=== PATIENT | female | born 1950 | race Caucasian/White ===

== ENCOUNTER 2016-10-03 10:00 | Inpatient (IN) ==
--- NOTE | 2016-10-03 10:51 | Family Practice History&Phys ---
Assessment and Plan (1) septic bursitis left elbow with hardware Status: Acute Assessment and plan: I aspirated 5 cc of thick purulent drainage from bursa last p.m. Cultures are pending. Will admit for IV antibiotics and specialty evaluation. In view of the proximity to previous hardware we'll consult orthopedics and infectious disease Current Visit: Yes (2) history of paroxysmal defibrillation Status: Chronic Assessment and plan: We will start her on aspirin and monitor closely Current Visit: Yes (3) osteoporosis Status: Chronic Assessment and plan: Stable on present medication Current Visit: Yes (4) nonrheumatic aortic sclerosis Status: Chronic Assessment and plan: Stable by history. We'll obtain a current echo during admission Current Visit: Yes (5) bifascicular block Status: Chronic Assessment and plan: Stable at present Current Visit: Yes (6) chronic neck and back pain Status: Chronic Assessment and plan: Stable on present medication Current Visit: Yes (7) bilateral venous stasis disease Status: Chronic Assessment and plan: Stable at present Current Visit: Yes History of Present Illness Chief complaint: septic bursitis left elbow with hardware History of present illness: Ms. Cho is a 66 year old female Patient is a 65-year-old white female seen in clinic last PM WITH swelling and pain and left elbow since last week. She was noted to have a 20,000 white blood cell count. I performed a aspiration on the elbow and received 5 cc of thick purulent drainage. Patient has had a previous fracture to the arm and apparently he has hardware present. Had wanted to admit her last p.m. but patient could not be admitted until this a.m. I obtained cultures last p.m. which are pending. Plan to admit patient start on vancomycin until cultures are obtained and will consult appropriate subspecialists. I have entered orders twice but have not been able to get the computer to take THE orders. I will resubmit the orders for 15 more times. Otherwise will admit Home Medications Medication Instructions Recorded Confirmed Type Alendronate [Fosamax] 10 mg PO DAILY@0730 06/01/16 06/01/16 History Ca/D3/Mag#11/Zinc/Specialist Managers/Quoc/Bor 1 each PO DAILY 06/01/16 06/01/16 History [Caltrate 600+D Plus Tablet] Estradiol [Estradiol Tab] 2 mg PO DAILY 06/01/16 06/01/16 History Folic Acid/Mv,Iron,Min [One Daily 1 each PO DAILY 06/01/16 06/01/16 History For Women Tablet] Magnesium Oxide [Magox 400] 400 mg PO DAILY 06/01/16 06/01/16 History Meloxicam [Mobic] 15 mg PO DAILY 06/01/16 06/01/16 History Metoprolol/Hydrochlorothiazide 1 each PO BID 06/01/16 06/01/16 History [Metoprolol-Hctz 100-50 mg Tab] Triamterene/Hydrochlorothiazid 1 each PO DAILY 06/01/16 06/01/16 History [Triamterene-Hctz 37.5-25 mg Tb] Allergies Allergy/AdvReac Type Severity Reaction Status Date / Time codeine Allergy HIVES Verified 06/01/16 10:09 Medical,Surgical,& Family Hx - Medical History Cardio: History of: Cardiac Dysrhythmia (bifascicular block), Cerebrovascular Disease (nonrheumatic aortic sclerosis), Cardiovascular Problems (history of paroxysmal atrial fibrillation) Rheumatology: History of;: Rheumatological Problems (chronic degenerative joint disease and back pain) Gastrointestinal: History of: GERD Musculoskeletal: History of: Osteoporosis - Surgical History Cardiac Surgeries: Patient Denies: Cardiac Catheterization Thoracic Surgeries: Patient denies;: Organ Transplant HEENT Surgeries: Surgical HX of: Tonsilectomy & Adenoidectomy Reproductive Surgeries: Surgical HX of;: Hysterectomy Orthopedic Surgeries: Surgical HX of;: Orthopedic Surgery (fracture left elbow with hardware) Additional Surgical History: Urinary bladder suspension - Family History Family History: Reports;: Family Cancer, Family Hypertension - Social History Smoking Status: Current every day smoker Have you smoked in the last 12 months: Yes Time spent discussing smoking cessation with patient: 3 to 10 minutes Frequency of Alcohol Use: None Type of Drug Use: None Marital Status: Lives With:: Spouse Functional capacity: independent ambulation Exam - Constitutional General appearance: mild distress - Head Head exam: Present: normal inspection - Eye Pupils: Present: SANTO - ENT ENT exam: Present: normal exam - Neck Neck exam: Present: normal inspection - Respiratory Respiratory exam: Present: clear to auscultation bilaterally - Cardiovascular Cardiovascular exam: Present: regular rate and rhythm - GI/Abdominal GI/Abdominal exam: Present: normal bowel sounds, soft - Extremities Exam Extremities exam: Present: other (patient has swelling and pain and erythema over the olecranon region of the left elbow, I aspirated 5 cc of thick purulent drainage last p.m.) - Back Exam Back exam: Present: normal inspection - Neurological Exam Neurological exam: Present: alert, oriented X3 - Psychiatric Psychiatric exam: Present: normal affect - Skin Skin exam: Present: normal color
--- NOTE | 2016-10-03 11:39 | Orthopedic Consult Note ---
History of Present Illness Chief complaint: Left elbow swelling History of present illness: Ms. Cho is a 66 year old female who has been having swelling in the left elbow for the past few days. She had increasing erythema and pain as well. She was seen in Dr. Rausch's office yesterday where he aspirated 45 cc of purulent fluid. This was sent to lab for evaluation. Apparently she did not want to be admitted last night but came into the hospital for admission and management today. She underwent fixation of a left elbow fracture of some sort in the distant past, approximately 20 years ago. She also had some sort of elbow bursitis about a year ago that was aspirated, but the fluid is not purulent at that time. Currently, her cultures are growing gram-positive cocci from the aspirate yesterday. She denies any fever or constitutional symptoms Home Medications Medication Instructions Recorded Confirmed Type Alendronate [Fosamax] 10 mg PO DAILY@0730 06/01/16 06/01/16 History Ca/D3/Mag#11/Zinc/Electric Refrigerator Preparer/Quoc/Bor 1 each PO DAILY 06/01/16 06/01/16 History [Caltrate 600+D Plus Tablet] Estradiol [Estradiol Tab] 2 mg PO DAILY 06/01/16 06/01/16 History Folic Acid/Mv,Iron,Min [One Daily 1 each PO DAILY 06/01/16 06/01/16 History For Women Tablet] Magnesium Oxide [Magox 400] 400 mg PO DAILY 06/01/16 06/01/16 History Meloxicam [Mobic] 15 mg PO DAILY 06/01/16 06/01/16 History Metoprolol/Hydrochlorothiazide 1 each PO BID 06/01/16 06/01/16 History [Metoprolol-Hctz 100-50 mg Tab] Triamterene/Hydrochlorothiazid 1 each PO DAILY 06/01/16 06/01/16 History [Triamterene-Hctz 37.5-25 mg Tb] Allergies Allergy/AdvReac Type Severity Reaction Status Date / Time codeine Allergy HIVES Verified 06/01/16 10:09 12 point system: reviewed and no additional remarkable complaints except as stated Medical,Surgical,& Family Hx - Medical History Cardio: History of: Cardiovascular Problems (PATIENT DOES NOT KNOW) Musculoskeletal: History of: Osteoporosis - Surgical History Cardiac Surgeries: Patient Denies: Cardiac Catheterization Thoracic Surgeries: Patient denies;: Organ Transplant - Social History Smoking Status: Never smoker Exam - Constitutional Exam: Left upper extremity: She has some erythema in the arm along the dorsal aspect of the arm extending into the hand. She has an area of swelling and fluctuance over the olecranon process. She has a well-healed incision along the posterior lateral portion of the elbow as well. Assessment and Plan (1) septic bursitis left elbow with hardware Status: Acute Assessment and plan: I discussed the situation with she and her today. She does have a septic olecranon bursitis, likely Staphylococcus. I recommended I&D of the left elbow. We also discussed possible hardware removal if it appeared to be involved however this could be difficult considering length on the hardware has been in place. Will obtain x-rays to delineate exactly what type of hardware is present prior to proceeding to the operating suite. Risks, alternatives, and benefits to undergoing this procedure were discussed in great detail, they voiced understanding and desired to proceed. Risks discussed included, but are not limited to, bleeding, recurrent infection, damage to artery or nerves, persistent pain and need for revision surgery. We will get her scheduled for this afternoon. Current Visit: Yes
[2016-10-03] MEDS ORDERED: ONDANSETRON 4 MG/2 ML VIAL IV PRN (11:41)
[2016-10-03] MEDS ORDERED: ACETAMINOPHEN 325 MG TABLET PO PRN (11:42)
[2016-10-03] MEDS ORDERED: VANCOMYCIN INJ 1,000 MG in SODIUM CHLORIDE 0.9% 250 ML IV SCH (12:00)
--- NOTE | 2016-10-03 12:11 | Infectious Disease Consult ---
Assessment and Plan (1) septic bursitis left elbow with hardware Status: Acute Assessment and plan: Gram-positive cocci growing from the pus aspirated from the left elbow yesterday. Recommendations: 1. Agree with empiric vancomycin, monitor trough levels goal trough is 15-20. Monitor renal function closely while on vancomycin. 2. Blood cultures 2 sets today 3. Follow-up cultures and adjust antibiotics accordingly 4. Patient will need antibiotics for prolonged period given the presence of hardware in proximity of this infection to the bone. Probably 6 weeks antibiotic therapy. Thank you very much for the consult. Will follow. Discussed with patient's at bedside. Current Visit: Yes (2) history of paroxysmal defibrillation Status: Chronic Current Visit: Yes (3) osteoporosis Status: Chronic Current Visit: Yes History of Present Illness Chief complaint: Left elbow septic bursitis with hardware History of present illness: Ms. Cho is a 66 year old female presented with increasing swelling redness and pain to the left elbow for the past 2-3 days. She has history of fracture of that left upper extremity with placement of plates and screws about the elbow. That was 20 years ago. She denies recent trauma to the area. No fever or other constitutional symptoms. Saw her primary care provider Dr. Rausch yesterday and had pus aspirated from the olecranon bursa. She was called in for admission and I am asked to assist with her management. Home Medications Medication Instructions Recorded Confirmed Type Alendronate [Fosamax] 10 mg PO DAILY@0730 06/01/16 06/01/16 History Ca/D3/Mag#11/Zinc/Medicare Compliance Auditor/Quoc/Bor 1 each PO DAILY 06/01/16 06/01/16 History [Caltrate 600+D Plus Tablet] Estradiol [Estradiol Tab] 2 mg PO DAILY 06/01/16 06/01/16 History Folic Acid/Mv,Iron,Min [One Daily 1 each PO DAILY 06/01/16 06/01/16 History For Women Tablet] Magnesium Oxide [Magox 400] 400 mg PO DAILY 06/01/16 06/01/16 History Meloxicam [Mobic] 15 mg PO DAILY 06/01/16 06/01/16 History Metoprolol/Hydrochlorothiazide 1 each PO BID 06/01/16 06/01/16 History [Metoprolol-Hctz 100-50 mg Tab] Triamterene/Hydrochlorothiazid 1 each PO DAILY 06/01/16 06/01/16 History [Triamterene-Hctz 37.5-25 mg Tb] Allergies Allergy/AdvReac Type Severity Reaction Status Date / Time codeine Allergy HIVES Verified 06/01/16 10:09 12 point system: reviewed and no additional remarkable complaints except as stated (Per HPI) Medical,Surgical,& Family Hx - Medical History Cardio: History of: Cardiac Dysrhythmia (bifascicular block), Cerebrovascular Disease (nonrheumatic aortic sclerosis), Cardiovascular Problems (PATIENT DOES NOT KNOW) Rheumatology: History of;: Rheumatological Problems (chronic degenerative joint disease and back pain) Gastrointestinal: History of: GERD Musculoskeletal: History of: Osteoporosis - Surgical History Cardiac Surgeries: Patient Denies: Cardiac Catheterization Thoracic Surgeries: Patient denies;: Organ Transplant HEENT Surgeries: Surgical HX of: Tonsilectomy & Adenoidectomy Reproductive Surgeries: Surgical HX of;: Hysterectomy Orthopedic Surgeries: Surgical HX of;: Orthopedic Surgery (fracture left elbow with hardware) - Family History Family History: Reports;: Family Cancer, Family Hypertension - Social History Smoking Status: Never smoker Frequency of Alcohol Use: None Type of Drug Use: None Infectious Disease Exam H&P - Constitutional Vitals: Vital Signs Temp Pulse Resp BP Pulse Ox 96.9 F L 92 H 18 119/62 98 10/03/16 11:34 10/03/16 11:34 10/03/16 11:34 10/03/16 11:34 10/03/16 11:34 Intake and Output 10/02/16 10/03/16 10/03/16 23:59 07:59 15:59 Other: Weight 49.895 kg Patient Weight 10/03/16 23:59 Weight 49.895 kg Exam: General: Patient comfortable, nontoxic appearing HEENT: Mucous membranes pink and moist, anicteric acyanotic, SANTO, no oropharyngeal exudates Neck: Supple, no thyroid gland enlargement, no lymphadenopathy Respiratory system: Breath sounds vesicular, no crepitations or wheezes Cardiovascular: Normal S1 and S2, no murmurs appreciated Abdomen: Normal bowel sounds, soft nontender throughout, no organomegaly or mass Genitourinary: No suprapubic pain or bladder distention Extremities: Significant findings confined to the left upper extremity, there is fluctuant swelling over the left olecranon, there is no erythema and the swelling extends along the extensor aspect of the forearm. Skin: No rash
--- NOTE | 2016-10-03 12:17 | XRay Report ---
History: Elbow swelling. Possible infection. Previous ORIF Date: 10/03/2016 Study: Left elbow 2 views Comparison exam: No previous elbow x-ray currently available Metallic plate and screws stabilize an old healed olecranon fracture. There is no acute fracture or dislocation. There is no plain film sign of osteomyelitis. There is soft tissue swelling dorsal to the elbow of a nonspecific nature. There are some small nodular calcifications measuring 3.5 mm and less dorsal to the distal most left humerus on the lateral view. These could represent areas of calcific loose body formation or remote post traumatic soft tissue ossification. Impression: Previous ORIF of an old healed olecranon fracture. No plain film signs of osteomyelitis. Nonspecific soft tissue swelling dorsal to the elbow PROCEDURE INTERPRETED AT [facility] DEPARTMENT OF RADIOLOGY Final Report Signed by: Dr. Marie Jeffrey
--- NOTE | 2016-10-03 12:32 | EKG Report ---
Stationary ECG Study [facility] Test Date: 10/03/2016 12:34:12 PM Pat Name: JOSELUIS LEIGH Department: Room: 233 Gender: F [employer] [id number] Technical Lead: [place] : 1950 Requested by: Chepe Miller Order Number: [id number] Reading MD: KOURTNEY MARION Intervals [place] Rate: 113 P: 75 AR: 120 QRS: -86 QRSD: 114 T: 65 QT: 320 QTc: 387 Interpretive Statements SINUS TACHYCARDIA RIGHT BUNDLE BRANCH BLOCK LEFT ANTERIOR FASCICULAR BLOCK POSSIBLE ANTERIOR MYOCARDIAL INFARCTION, OF INDETERMINATE AGE INFERIOR MYOCARDIAL INFARCTION, OF INDETERMINATE AGE Electronically Signed On 10-05-16 15:17:19 CDT by KOURTNEY MARION [email or web address]
[2016-10-03 12:42] LABS: Basophils # 0.1 10*3/uL (0.0-0.2); Basophils % 0.4 % (0.0-0.8); Eosinophils # 0.1 10*3/uL (0.0-0.87); Eosinophils % 0.7 % (0.00-10.9); Hematocrit 31.8 VOL% (35.7-47.0); Hemoglobin 11.1 GM/DL (12.0-16.0); Immature Granulocytes % 1.2 %; Immature Granulocytes Absolute 0.22 #; Lymphocytes # 0.5 10*3/uL (1.4-4.0); Lymphocytes % 2.8 % (21.3-54.2); Mean Corpuscular HGB Conc 34.9 GM/DL (32-36); Mean Corpuscular Hemoglobin 32 PG (27-34); Mean Corpuscular Volume 92.7 FL (87-102); Mean Platelet Volume 9.8 FL (9.6-12.0); Monocytes # 0.9 10*3/uL (0.11-0.8); Monocytes % 4.9 % (1.7-12.7); Neutrophils # 16.2 10*3/uL (1.4-7.4); Platelet Count 390 T/CUMM (130-400); Red Blood Count 3.43 MC/CUMM (3.8-5.5); Red Cell Distribution Width 13.3 % (9.3-17.3)
[2016-10-03 13:00] LABS: Lymphocytes 2 % (20-55); Segmented Neutrophils 95 % (50-85); Total Cells Counted 100
[2016-10-03] MEDS ORDERED: VANCOMYCIN INJ 750 MG in SODIUM CHLORIDE 0.9% 250 ML IV SCH ×2 (13:00→14:30)
[2016-10-03 13:01] LABS: Hypochromasia 1+; Platelet Estimate Adequate
[2016-10-03] MEDS ORDERED: NEOSTIGMINE 10 MG/10 ML VIAL ONE (13:06)
[2016-10-03] MEDS ORDERED: ONDANSETRON 4 MG/2 ML VIAL ONE (13:06)
[2016-10-03] MEDS ORDERED: DEXAMETHASONE 10 MG/1 ML VIAL ONE (13:06)
[2016-10-03] MEDS ORDERED: GLYCOPYRROLATE 0.4 MG/2 ML VIAL ONE (13:06)
[2016-10-03] MEDS ORDERED: ROCURONIUM 100 MG/10 ML VIAL IV ONE (13:06)
[2016-10-03] MEDS ORDERED: METOCLOPRAMIDE 10 MG/2 ML VIAL ONE (13:06)
[2016-10-03] MEDS ORDERED: PROPOFOL 200 MG/20 ML VIAL IV ONE (13:06)
[2016-10-03] MEDS ORDERED: PHENYLEPHRINE 1 MG/10 ML SYRINGE IV ONE (13:06)
[2016-10-03] MEDS ORDERED: VANCOMYCIN 1,000 MG VIAL ONE (13:20)
[2016-10-03 13:26] LABS: Albumin 3.6 G/DL (3.4-5.0); Bilirubin,Total 0.6 MG/DL (0.2-1.0); Osmolality,Calculated 275.1 MOS/KG (273-304); Potassium 4.1 MMOL/L (3.5-5.1); Total Protein 7.7 G/DL (6.4-8.3)
--- NOTE | 2016-10-03 14:43 | XRay Report ---
XR chest 2V Indication: SOB Comparison: Chest x-ray dated April 30, 2008 Technique: Frontal and lateral views of the chest. Findings: Heart size appears within normal limits. Significant mitral annular calcifications suggested. Chronic change of the lungs without focal consolidation, pleural effusion, or pneumothorax. Hyperinflation of the lungs suggestive of COPD. Diffuse osteopenia. IMPRESSION: As above. PROCEDURE INTERPRETED AT [facility] DEPARTMENT OF RADIOLOGY Final Report Signed by: Dr Casey Liriano
--- NOTE | 2016-10-03 14:55 | Anesthesia Post-Op ---
Anesthesia Post OP - Post Ansesthetic Evaluation Patient seen in post op: Yes Resp: within normal limits CV: within normal limits Mental: within normal limits Temp: within normal limits [id number]: within normal limits Nausea and Vomiting: within normal limits Pain: within normal limits
[2016-10-03] MEDS ORDERED: MIDAZOLAM 2 MG/2 ML VIAL ONE (15:00)
[2016-10-03] MEDS ORDERED: SEVOFLURANE 1 UNIT/15 MINUTE INH ONE (15:00)
[2016-10-03] MEDS ORDERED: fentaNYL 100 MCG/2 ML VIAL ONE (15:00)
[2016-10-03] MEDS ORDERED: LACTATED RINGERS 2,000 ML IV ONE (15:00)
[2016-10-03] MEDS ORDERED: HYDROmorphone 2 MG/1 ML VIAL IV PRN ×2 (15:05)
[2016-10-03] MEDS ORDERED: NALOXONE 0.4 MG/ML VIAL IV PRN (15:05)
[2016-10-03] MEDS ORDERED: KETOROLAC 15 MG/1 ML VIAL IV PRN (15:05)
[2016-10-03] MEDS ORDERED: HYDROmorphone 2 MG/1 ML VIAL ONE (15:15)
[2016-10-03] MEDS ORDERED: MORPHINE PCA 30 MG/30 ML SYRINGE IV SCH (15:30)
[2016-10-03] MEDS: ASPIRIN 325 MG TABLET PO SCH (16:53)
[2016-10-03] MEDS: SODIUM CHLORIDE 0.9% 1,000 ML IV SCH (18:43)
[2016-10-03] MEDS: ACETAMINOPHEN 500 MG TABLET PO SCH (22:33)
[2016-10-03] MEDS: hydroCHLOROthiazide 25 MG TABLET PO SCH (22:33)
[2016-10-03] MEDS: DOCUSATE SODIUM 100 MG CAPSULE PO SCH (22:34)
[2016-10-03] MEDS: METOPROLOL TARTRATE 100 MG TABLET PO SCH (22:34)
[2016-10-04] MEDS: ACETAMINOPHEN 500 MG TABLET PO SCH ×3 (03:21→12:20)
[2016-10-04] MEDS: SODIUM CHLORIDE 0.9% 1,000 ML IV SCH (04:50)
[2016-10-04] MEDS: PANTOPRAZOLE 40 MG TABLET PO SCH ×2 (04:51→09:06)
[2016-10-04 06:23] LABS: Basophils % 0.1 % (0.0-0.8); Hematocrit 22.1 VOL% (35.7-47.0); Hemoglobin 7.4 GM/DL (12.0-16.0); Immature Granulocytes % 0.6 %; Lymphocytes # 0.3 10*3/uL (1.4-4.0); Lymphocytes % 2.2 % (21.3-54.2); Mean Corpuscular HGB Conc 33.5 GM/DL (32-36); Mean Corpuscular Hemoglobin 32 PG (27-34); Mean Corpuscular Volume 94.8 FL (87-102); Mean Platelet Volume 10.1 FL (9.6-12.0); Monocytes # 0.4 10*3/uL (0.11-0.8); Monocytes % 2.5 % (1.7-12.7); Neutrophils # 14.7 10*3/uL (1.4-7.4); Neutrophils % 94.6 % (38.7-73.9); Platelet Count 294 T/CUMM (130-400); Red Blood Count 2.33 MC/CUMM (3.8-5.5); Red Cell Distribution Width 13.3 % (9.3-17.3); White Blood Count 15.5 T/CUMM (4-12)
[2016-10-04 07:10] LABS: Calcium 7.4 MG/DL (8.5-10.1); Osmolality,Calculated 279.7 MOS/KG (273-304); Potassium 3.9 MMOL/L (3.5-5.1)
[2016-10-04 07:14] LABS: Magnesium 1.5 MG/DL (1.8-2.4); Risk Ratio 1.53; VLDL CHOLESTEROL 18.2 MG/DL
[2016-10-04 07:25] LABS: Band Neutrophils 5 % (0-10); Hypochromasia Slight; Platelet Estimate Adequate; Segmented Neutrophils 95 % (50-85); Total Cells Counted 100
[2016-10-04] MEDS: ESTRADIOL 2 MG TABLET PO SCH (08:54)
[2016-10-04] MEDS: ASPIRIN 325 MG TABLET PO SCH (08:54)
[2016-10-04] MEDS: DOCUSATE SODIUM 100 MG CAPSULE PO SCH ×2 (08:55→20:23)
[2016-10-04] MEDS: CALCIUM (CARBONATE)/VITAMIN D 600 MG-400 UNIT TABLET PO SCH (08:55)
[2016-10-04] MEDS: MULTIVITAMIN (CENTRUM) TABLET PO SCH (08:56)
[2016-10-04] MEDS: hydroCHLOROthiazide 25 MG TABLET PO SCH ×2 (08:56→20:23)
[2016-10-04] MEDS: METOPROLOL TARTRATE 100 MG TABLET PO SCH ×2 (08:56→20:23)
[2016-10-04] MEDS: ENOXAPARIN 40 MG/0.4 ML SYRINGE SUBCUT SCH (09:05)
[2016-10-04] MEDS: MAGNESIUM OXIDE 400 MG TABLET PO SCH (09:07)
[2016-10-04] MEDS ORDERED: POTASSIUM CHLORIDE INJ 10 MEQ, MAGNESIUM SULF INJ 1 GM in SODIUM CHLORIDE 0.45% 1,000 ML IV SCH (09:30)
--- NOTE | 2016-10-04 10:00 | Family Practice Progress Note ---
Family Practice - PN: Subj Interval history: Patient states that feels much better today. States she was unable sleep last p.m. but otherwise doing well. Dr. Fitzgerald was able to remove hardware from previous fracture which is a major help in clearing up this infection. Initial cultures revealed gram-positive cocci which is expected. Appreciate Dr. Archuleta assistance. Will modify antibiotics as soon as cultures available. Patient can receive her IV antibiotics through the infusion center. Hopefully can arrange all that on Thursday. A.m. labs reveal WBC of 15,500 which is improved magnesium was decreased at 1.5 other labs are stable. Will replenish magnesium deficit otherwise continue present therapy. She has a anemia of blood loss. Hemoglobin 7.4 with hematocrit of 22.1. Will monitor this. Exam (Progress Note) - Constitutional Vitals: Period Temp Pulse Resp BP Sys/Hatch Pulse Ox Last 24 Hr 96.9 F-98.2 F 76-116 14-92 90-178/51-112 93-100 Results - Labs CBC & BMP: 10/04/16 05:12 10/04/16 05:12 Assessment and Plan (1) septic bursitis left elbow with hardware Status: Acute Assessment and plan: I aspirated 5 cc of thick purulent drainage from bursa last p.m. Cultures are pending. Will admit for IV antibiotics and specialty evaluation. In view of the proximity to previous hardware we'll consult orthopedics and infectious disease Current Visit: Yes (2) history of paroxysmal defibrillation Status: Chronic Assessment and plan: We will start her on aspirin and monitor closely Current Visit: Yes (3) osteoporosis Status: Chronic Assessment and plan: Stable on present medication Current Visit: Yes (4) nonrheumatic aortic sclerosis Status: Chronic Assessment and plan: Stable by history. We'll obtain a current echo during admission Current Visit: Yes (5) bifascicular block Status: Chronic Assessment and plan: Stable at present Current Visit: Yes (6) chronic neck and back pain Status: Chronic Assessment and plan: Stable on present medication Current Visit: Yes (7) bilateral venous stasis disease Status: Chronic Assessment and plan: Stable at present Current Visit: Yes
--- NOTE | 2016-10-04 10:03 | Orthopedic Progress Note ---
Assessment and Plan (1) septic bursitis left elbow with hardware Status: Acute Assessment and plan: Discussed with the patient and her that the septic bursitis involves the hardware and that this was removed. We will leave dressing and Hemovac in place until tomorrow. Continue IV antibiotics Follow-up cultures Current Visit: Yes Orthopedics - Subjective Interval history: Patient is comfortable this morning. Pain is controlled. On exam, Hemovac is in place. Dressings clean and dry. Exam - Constitutional Vitals: Period Temp Pulse Resp BP Sys/Hatch Pulse Ox Last 24 Hr 96.9 F-98.2 F 76-116 14-92 90-178/51-112 93-100 Results - Labs CBC & BMP: 10/04/16 05:12 10/04/16 05:12
[2016-10-04] MEDS: TRIAMTERENE/HCTZ 37.5-25 MG TABLET PO SCH (12:19)
[2016-10-04] MEDS ORDERED: VANCOMYCIN INJ 750 MG in SODIUM CHLORIDE 0.9% 250 ML IV SCH (14:00)
[2016-10-05 04:37] LABS: Apearance,Urine Slightly Hazy (Clear); Bacteria,Urine Occasional /HPF (Few); Bilirubin,Urine Negative (Negative); Blood, Urine Negative (Negative); Glucose,Urine (UA) Negative (Negative); Ketones,Urine Negative (Negative); Nitrite,Urine Negative (Negative); Protein,Urine Negative; RBC,Urine 1 /HPF (0-4); Squamous Epithelial Cell,Urine Occasional /HPF (0-10); Urine Color Straw (Yellow); Urine Specific Gravity 1.006 (1.001-1.035); Urine Urobilinogen < 2.0 EU/DL (0.2-1.0); WBC,Urine 2 /HPF (0-6)
[2016-10-05 06:13] LABS: Basophils % 0.2 % (0.0-0.8); Eosinophils # 0.4 10*3/uL (0.0-0.87); Eosinophils % 3.5 % (0.00-10.9); Hematocrit 24.9 VOL% (35.7-47.0); Hemoglobin 8.2 GM/DL (12.0-16.0); Immature Granulocytes % 0.8 %; Immature Granulocytes Absolute 0.09 #; Lymphocytes # 1.5 10*3/uL (1.4-4.0); Lymphocytes % 12.9 % (21.3-54.2); Mean Corpuscular HGB Conc 32.9 GM/DL (32-36); Mean Corpuscular Hemoglobin 32 PG (27-34); Mean Corpuscular Volume 96.1 FL (87-102); Monocytes # 0.6 10*3/uL (0.11-0.8); Monocytes % 4.8 % (1.7-12.7); Neutrophils # 9.3 10*3/uL (1.4-7.4); Neutrophils % 77.8 % (38.7-73.9); Platelet Count 333 T/CUMM (130-400); Red Blood Count 2.59 MC/CUMM (3.8-5.5); Red Cell Distribution Width 13.2 % (9.3-17.3); White Blood Count 11.9 T/CUMM (4-12)
[2016-10-05 06:35] LABS: Calcium 9.6 MG/DL (8.5-10.1)
[2016-10-05 06:46] LABS: Magnesium 1.8 MG/DL (1.8-2.4); Thyroid Stimulating Hormone 1.32 uIU/ml (0.358-3.74)
[2016-10-05] MEDS: MULTIVITAMIN (CENTRUM) TABLET PO SCH (09:03)
[2016-10-05] MEDS: ESTRADIOL 2 MG TABLET PO SCH (09:03)
[2016-10-05] MEDS: ASPIRIN 325 MG TABLET PO SCH (09:04)
[2016-10-05] MEDS: hydroCHLOROthiazide 25 MG TABLET PO SCH ×2 (09:04→20:27)
[2016-10-05] MEDS: CALCIUM (CARBONATE)/VITAMIN D 600 MG-400 UNIT TABLET PO SCH (09:05)
[2016-10-05] MEDS: METOPROLOL TARTRATE 100 MG TABLET PO SCH ×2 (09:05→20:28)
[2016-10-05] MEDS: MAGNESIUM OXIDE 400 MG TABLET PO SCH (09:06)
[2016-10-05] MEDS: PANTOPRAZOLE 40 MG TABLET PO SCH (09:06)
[2016-10-05] MEDS: DOCUSATE SODIUM 100 MG CAPSULE PO SCH ×2 (09:07→20:27)
[2016-10-05] MEDS: ENOXAPARIN 40 MG/0.4 ML SYRINGE SUBCUT SCH (09:07)
--- NOTE | 2016-10-05 09:55 | Orthopedic Progress Note ---
Assessment and Plan (1) septic bursitis left elbow with hardware Status: Acute Assessment and plan: d/c drain today OK to shower and change bandage after lunch Continue IV antibiotics Follow-up cultures Current Visit: Yes Orthopedics - Subjective Interval history: No c/o this am erythema and edema improved Cx - G+ cocci Exam - Constitutional Vitals: Period Temp Pulse Resp BP Sys/Hatch Pulse Ox Last 24 Hr 97.5 F-98.4 F 69-82 18-20 97-131/53-89 94-96 Results - Labs CBC & BMP: 10/05/16 05:40 10/05/16 05:40
--- NOTE | 2016-10-05 11:20 | Family Practice Progress Note ---
Family Practice - PN: Subj Interval history: Patient states she feels much better. Dr. Fitzgerald has removed drain. Both the cultures obtained in my office and culture obtained during surgical procedure grew staph aureus. After reviewing sensitivity I have stopped the vancomycin and started on nafcillin. I will let Dr. Fulton decide in a.m. about appropriate discharge antibiotics. Patient is otherwise doing well. Exam (Progress Note) - Constitutional Vitals: Period Temp Pulse Resp BP Sys/Hatch Pulse Ox Last 24 Hr 97.5 F-98.4 F 69-82 18-20 97-131/53-89 94-96 Results - Labs CBC & BMP: 10/05/16 05:40 10/05/16 05:40 Assessment and Plan (1) septic bursitis left elbow with hardware Status: Acute Assessment and plan: I aspirated 5 cc of thick purulent drainage from bursa last p.m. Cultures are pending. Will admit for IV antibiotics and specialty evaluation. In view of the proximity to previous hardware we'll consult orthopedics and infectious disease Current Visit: Yes (2) history of paroxysmal defibrillation Status: Chronic Assessment and plan: We will start her on aspirin and monitor closely Current Visit: Yes (3) osteoporosis Status: Chronic Assessment and plan: Stable on present medication Current Visit: Yes (4) nonrheumatic aortic sclerosis Status: Chronic Assessment and plan: Stable by history. We'll obtain a current echo during admission Current Visit: Yes (5) bifascicular block Status: Chronic Assessment and plan: Stable at present Current Visit: Yes (6) chronic neck and back pain Status: Chronic Assessment and plan: Stable on present medication Current Visit: Yes (7) bilateral venous stasis disease Status: Chronic Assessment and plan: Stable at present Current Visit: Yes
[2016-10-05] MEDS: TRIAMTERENE/HCTZ 37.5-25 MG TABLET PO SCH (13:57)
[2016-10-05] MEDS: NAFCILLIN 2,000 MG in SODIUM CHLORIDE 0.9% 100 ML IV SCH ×3 (14:58→20:26)
[2016-10-05] MEDS ORDERED: ZALEPLON 5 MG CAPSULE PO PRN (21:00)
[2016-10-05] MEDS ORDERED: ESZOPICLONE 1 MG TABLET PO PRN (21:00)
--- NOTE | 2016-10-05 21:07 | ECHO Report ---
Eliana Cho Exam Date: 10/04/2016 10:14 Referring Physician: Technologist: Idania Castillo Age: 66 Ht (in): 63 Wt (lb): 110 Gender: F Exam Location: [facility] Echo Indications: Hx. cardiac dysrhythmia, CVA, GERD, septic bursitis Lt. elbow BP: 114 / 60 HR: 90 Rhythm: Sinus Technical Quality: Good IMPRESSIONS Mild concentric left ventricular hypertrophy. Left ventricular ejection fraction is estimated at 55-60 %. 2-3+ LAE. Trace - mild mitral valve regurgitation. Mild aortic valve sclerosis without stenosis or regurgitation. Mild tricuspid valve regurgitation. Tricuspid regurgitation velocities suggest a PAP of 31 mmHg. MEASUREMENTS (Male / Female) Normal Values 2D ECHO LV Diastolic Diameter PLAX 3.2 cm 4.2 - 5.9 / 3.9 - 5.3 cm LV Systolic Diameter PLAX 2.2 cm LV Fractional Shortening PLAX 32.7 % IVS Diastolic Thickness 1.4 cm 0.6 - 1.0 / 0.6 - 0.9 cm LVPW Diastolic Thickness 1.2 cm 0.6 - 1.0 / 0.6 - 0.9 cm Aortic Root Diameter 2.1 cm LA Systolic Diameter LX 2.9 cm 3.0 - 4.0 / 2.7 - 3.8 cm DOPPLER TR Peak Velocity 227.0 cm/s TR Peak Gradient 20.6 mmHg FINDINGS Left Ventricle Moderately increased septal wall thickness. Mildly increased posterior wall thickness. Mild concentric left ventricular hypertrophy. Left ventricular ejection fraction is estimated at 55-60 %. Right Ventricle Normal right ventricular size. Right Atrium Normal right atrial size. Left Atrium 2-3+ LAE Mitral Valve Mild mitral valve sclerosis. Trace - mild mitral valve regurgitation. Aortic Valve Mild aortic valve sclerosis without stenosis or regurgitation. Tricuspid Valve Morphologically normal tricuspid valve. Mild tricuspid valve regurgitation. Tricuspid regurgitation velocities suggest a PAP of 31 mmHg. Pulmonic Valve Morphologically normal pulmonic valve. Pericardium No pericardial effusion. Aorta Normal size aortic root and proximal ascending aorta. Demian Juarez MD (Electronically Signed) Final Date: 05 October 2016 21:06
[2016-10-06] MEDS: NAFCILLIN 2,000 MG in SODIUM CHLORIDE 0.9% 100 ML IV SCH ×4 (00:15→12:26)
[2016-10-06 05:27] LABS: Basophils # 0.1 10*3/uL (0.0-0.2); Basophils % 0.6 % (0.0-0.8); Eosinophils # 0.5 10*3/uL (0.0-0.87); Eosinophils % 4.8 % (0.00-10.9); Hematocrit 26.1 VOL% (35.7-47.0); Hemoglobin 8.4 GM/DL (12.0-16.0); Immature Granulocytes % 0.8 %; Immature Granulocytes Absolute 0.08 #; Lymphocytes # 1.2 10*3/uL (1.4-4.0); Lymphocytes % 11.7 % (21.3-54.2); Mean Corpuscular HGB Conc 32.2 GM/DL (32-36); Mean Corpuscular Hemoglobin 31 PG (27-34); Mean Platelet Volume 9.8 FL (9.6-12.0); Monocytes # 0.8 10*3/uL (0.11-0.8); Monocytes % 7.6 % (1.7-12.7); Neutrophils # 7.5 10*3/uL (1.4-7.4); Neutrophils % 74.5 % (38.7-73.9); Platelet Count 396 T/CUMM (130-400); Red Blood Count 2.69 MC/CUMM (3.8-5.5); Red Cell Distribution Width 13.2 % (9.3-17.3); White Blood Count 10.1 T/CUMM (4-12)
[2016-10-06 05:40] LABS: Calcium 8.6 MG/DL (8.5-10.1); Osmolality,Calculated 278.7 MOS/KG (273-304); Potassium 4.4 MMOL/L (3.5-5.1)
--- NOTE | 2016-10-06 06:56 | Orthopedic Progress Note ---
Assessment and Plan (1) septic bursitis left elbow with hardware Status: Acute Assessment and plan: daily dressing change Cx MSSA ABX per ID Okay to discharge from orthopedic standpoint once antibiotic regimen is finalized Current Visit: Yes Orthopedics - Subjective Interval history: No new complaints. Pain is controlled. On exam her dressings clean and dry Cultures are growing MSSA Exam - Constitutional Vitals: Period Temp Pulse Resp BP Sys/Hatch Pulse Ox Last 24 Hr 97.8 F-98.6 F 70-82 16-20 110-131/63-79 94-99 Results - Labs CBC & BMP: 10/06/16 04:47 10/06/16 04:47 Specialty Discharge - Follow Up or Referrals Follow up with: Griffin Fitzgerald MD [Physician] - (10-14days) - Speciality Discharge Instructions Orthopedic Instructions: daily dressing change. OK to shower. No tub soaks
--- NOTE | 2016-10-06 08:03 | Discharge Summary ---
Hospital Course - Hospital Course Hospital Course: History of present illness: Ms. Cho is a 66 year old female Patient is a 65-year-old white female seen in clinic last PM WITH swelling and pain and left elbow since last week. She was noted to have a 20,000 white blood cell count. I performed a aspiration on the elbow and received 5 cc of thick purulent drainage. Patient has had a previous fracture to the arm and apparently he has hardware present. Had wanted to admit her last p.m. but patient could not be admitted until this a.m. I obtained cultures last p.m. which are pending. Plan to admit patient start on vancomycin until cultures are obtained and will consult appropriate subspecialists HOSPITAL COURSE -patient was admitted to hospital lab and x- ray studies obtained. Patient was seen in consultation Dr. Fitzgerald. Patient was taken to surgery where an incision and drainage was carried out and removal of hardware from previous fracture. Patient was also seen by Dr. Fulton. Appropriate cultures were obtained and patient was started on IV vancomycin. Patient subsequently required further debridement and placement of wound VAC. Cultures have revealed staph aureus. I have switched antibiotics from vancomycin to nafcillin. Patient has had a daily improvement is much improved at time of discharge. Dr. Fulton will arrange outpatient antibiotics through the infusion center. He plans to give Rocephin 1 g twice a day daily for 6 weeks. Will arrange appropriate follow-up. Patient should continue to do well. Diagnosis - Discharge Diagnosis (1) septic bursitis left elbow with hardware Status: Acute (2) history of paroxysmal defibrillation Status: Chronic (3) osteoporosis Status: Chronic (4) nonrheumatic aortic sclerosis Status: Chronic (5) bifascicular block Status: Chronic (6) chronic neck and back pain Status: Chronic (7) bilateral venous stasis disease Status: Chronic Specialty Discharge - Follow Up or Referrals Follow up with: Deb Flower MD [Physician] - 10/14/16 9:00 am Griffin Fitzgerald MD [Physician] - 10/16/16 2:30 pm (10-14days) Discharge Plan - Discharge Data Disposition: Disch To Home/Self Care Condition at Discharge: Stable Discharge Diet: advance to your usual diet Activity: resume usual activities as tolerated Weight Bearing at Discharge: full weight bearing Contact your physician if you experience:: fever over 101, Shortness of breath - Discharge Medications Continue Ca/D3/Mag#11/Zinc/Freight Claim Investigator/Quoc/Bor [Caltrate 600+D Plus Tablet] 1 each PO DAILY Folic Acid/Mv,Iron,Min [One Daily For Women Tablet] 1 each PO DAILY Magnesium Oxide [Magox 400] 400 mg PO DAILY Metoprolol/Hydrochlorothiazide [Metoprolol-Hctz 100-50 mg Tab] 1 each PO BID Alendronate [Fosamax] 10 mg PO DAILY@0730 Meloxicam [Mobic] 15 mg PO DAILY Estradiol [Estradiol Tab] 2 mg PO DAILY Triamterene/Hydrochlorothiazid [Triamterene-Hctz 37.5-25 mg Tb] 1 each PO DAILY - Follow Up or Referral Follow Up: eDb Flower MD [Physician] - 10/14/16 9:00 am Griffin Fitzgerald MD [Physician] - 10/16/16 2:30 pm (10-14days) - Forms/Instructions Exam - Constitutional Vitals: Period Temp Pulse Resp BP Sys/Hatch Pulse Ox Last 24 Hr 97.8 F-98.6 F 70-82 16-20 110-131/63-79 94-99 General appearance: no acute distress, no mild distress - Head Head exam: Present: normal inspection - Eye Pupils: Present: SANTO - ENT ENT exam: Present: normal exam - Respiratory Respiratory exam: Present: clear to auscultation bilaterally - Cardiovascular Cardiovascular exam: Present: regular rate and rhythm - GI/Abdominal GI/Abdominal exam: Present: normal bowel sounds, soft - Extremities Exam Extremities exam: Present: other (Patient has dressing on left arm but is much improved.) - Back Exam Back exam: Present: normal inspection - Neurological Exam Neurological exam: Present: alert, oriented X3 - Psychiatric Psychiatric exam: Present: normal affect - Skin Skin exam: Present: normal color Discharge Results Procedures and tests throughout hospitalization: Pending Orders 10/03/16 12:31 Blood Culture Stat 10/05/16 Urine Culture Routine Labs on day of discharge: Labs from last 24 hours 10/06/16 10/06/16 04:47 04:47 WBC 10.1 RBC 2.69 L Hgb 8.4 L Hct 26.1 L MCV 97.0 MCH 31 MCHC 32.2 RDW 13.2 Plt Count 396 MPV 9.8 Neut % (Auto) 74.5 H Lymph % (Auto) 11.7 L [place] % (Auto) 7.6 Eos % (Auto) 4.8 Baso % (Auto) 0.6 Neut # (Auto) 7.5 H Lymph # (Auto) 1.2 L [place] # (Auto) 0.8 Eos # (Auto) 0.5 Baso # (Auto) 0.1 Immature Gran % 0.8 Nucleated RBC % 0.0 Immature Gran # 0.08 Nucleated RBCs # 0.00 Sodium 138 Potassium 4.4 Chloride 104 Carbon Dioxide 24 Anion Gap 14.4 BUN 26 H Creatinine 1.10 H GFR Calculation 46 BUN/Creatinine Ratio 23.00 H Glucose 78 Calculated Osmolality 278.7 Calcium 8.6 Preliminary micro results at discharge 10/03/16 12:31 Blood Culture - Preliminary Blood No growth at 1 day 10/03/16 12:31 Blood Culture - Preliminary Blood No growth at 1 day DS: Provider Date of admission: 10/03/16 11:42 Primary care physician: Chepe Rausch DO Attending physician on admission: Chepe Rausch DO Consults: 10/03/16 10:36 Consult to Physician [CONS] Routine Comment: septic bursitis left elbow with hardware Consulting Provider: Deb Flower 10/03/16 10:37 Consult to Physician [CONS] Routine Comment: septic bursitis left elbow with hardware Consulting Provider: Dick Brown Jr. 10/03/16 14:17 Consult to Pharmacy [CONS] Routine Reason for Pharmacy Consult: Dose/Manage Vancomycin Discharging clinician: Chepe Rausch DO
[2016-10-06] MEDS: CALCIUM (CARBONATE)/VITAMIN D 600 MG-400 UNIT TABLET PO SCH (09:05)
[2016-10-06] MEDS: MULTIVITAMIN (CENTRUM) TABLET PO SCH (09:05)
[2016-10-06] MEDS: ASPIRIN 325 MG TABLET PO SCH (09:05)
[2016-10-06] MEDS: ESTRADIOL 2 MG TABLET PO SCH (09:06)
[2016-10-06] MEDS: hydroCHLOROthiazide 25 MG TABLET PO SCH (09:06)
[2016-10-06] MEDS: DOCUSATE SODIUM 100 MG CAPSULE PO SCH (09:06)
[2016-10-06] MEDS: METOPROLOL TARTRATE 100 MG TABLET PO SCH (09:07)
[2016-10-06] MEDS: MAGNESIUM OXIDE 400 MG TABLET PO SCH (09:07)
[2016-10-06] MEDS: ENOXAPARIN 40 MG/0.4 ML SYRINGE SUBCUT SCH (09:07)
[2016-10-06] MEDS: PANTOPRAZOLE 40 MG TABLET PO SCH (09:08)
[2016-10-06] MEDS: TRIAMTERENE/HCTZ 37.5-25 MG TABLET PO SCH (09:08)
--- NOTE | 2016-10-06 10:35 | Physician Query Form ---
CLICK EDIT DOCUMENT TO SELECT QUERY ANSWER --> OK --> SIGN Jane Costa RN Clinical Head Mva Reactor Operator W) [phone] (f) [phone] [email or web address] PROVIDERS: Make your selection(s) from the choices in EACH section by typing an "x" and enter comments in the comment section. Please use your independent medical judgment in providing your response. This request does not imply that any particular answer is desired or expected. CLINICAL INDICATORS: (Providers should not edit this section) Based on lab results of creatinine on admission of 1.50 with a GFR of 31 and decreased to 1.00. Pt. treated with IV fluids of Normal Saline. Clarify which of the following most accurately represents the patient's renal status: (x ) Acute kidney injury (non-traumatic) ( ) Acute renal failure ( ) Acute renal failure with underlying Chronic Kidney Disease (CKD) - please provide stage below ( ) CKD - please provide stage below ( ) Other, please specify: ( ) Clinically unable to determine Chronic Kidney Disease Stages Source: National Kidney Disease Foundation ( ) Stage I (eGFR > or = 90) ( ) Stage II (eGFR 60 - 89) ( x) Stage III (eGFR 30 - 59) ( ) Stage IV (eGFR 15 - 29) ( ) Stage V (eGFR < 15 or dialysis) COMMENTS: PLEASE ALSO DOCUMENT RESPONSE IN PROGRESS NOTES AND/OR DISCHARGE SUMMARY Use of terms such as suspected, likely, or probable (associated with a specific diagnosis that is being evaluated, monitored, or treated as if it exists) are acceptable and can be restated in the discharge summary if not ruled out. MTDD
[2016-10-06] MEDS ORDERED: cefTRIAXone 2,000 MG in SODIUM CHLORIDE 0.9% 100 ML IV ONE (11:10)
--- NOTE | 2016-10-06 12:24 | Pathology Report from [facility] ---
[facility] [place] [id number] PATIENT NAME : Eliana Cho ORDERING DR : Griffin Fitzgerald MD CLINICAL HX: LT elbow swelling POST-OP DX: Same SPECIMEN INFO: Retained hardware (1 plate, 6 screws) GROSS DESCRIPTION: Received fresh labeled ELIANA CHO consists of orthopedic hardware (1 plate, 6 screws), submitted for gross exam only. DIAGNOSIS FOR ELIANA CHO: Orthopedic hardware (1 plate, 6 screws), gross only. COLLECTED DATE: 10/05/2016 [facility] [place] DATE: 10/06/2016 ELECTRONICALLY SIGNED BY: Elaine Carr III, M.D. 10/06/2016 - 9:17:13 [facility] HEALTH NETWORKPaul
--- NOTE | 2016-10-06 13:06 | Infectious Disease Progress ---
Assessment and Plan (1) septic bursitis left elbow with hardware Status: Acute Assessment and plan: This infection is due to MSSA. Recommendations: 1. Switch from nafcillin to ceftriaxone 2g daily, in preparation for convenient daily dosing in outpatient setting 2. PICC today 3. COnsult web content & social media manager to arrange IV antibiotics in infusion center 4. Antibiotic for 6 weeks from date of surgery, so last day will be November 13 5. Appt to see me in the office in 1 week Current Visit: Yes (2) history of paroxysmal defibrillation Status: Chronic Current Visit: Yes (3) osteoporosis Status: Chronic Current Visit: Yes Infectious Disease - PN: Subj Interval history: Patient doing ok. She had surgery last thursday with removal of the hardware about Lt olecranon. No fever or other constitutionl symptoms. She was switched to nafcillin over the weekend as the culture had MSSA. Infectious Disease Exam (PN) - Constitutional Vitals: Temp Pulse Resp BP Pulse Ox 98.2 F 80 20 137/71 96 10/06/16 07:55 10/06/16 07:55 10/06/16 07:55 10/06/16 07:55 10/06/16 07:55 General appearance: no acute distress, no mild distress Exam: General appearance: no acute distress - Eye Eye exam: Present: EOMI. no icterus Pupils: Present: SANTO - ENT ENT exam: no oropharyhgeal exudates - Neck Neck exam: supple, no lymphadenopathy - Respiratory Respiratory exam: vesicular BS, no crepitations or wheezes - Cardiovascular Cardiovascular exam: regular rate and rhythm, no murmurs - GI/Abdominal GI/Abdominal exam: normal bowel sounds, soft, non-tender, no organomegaly or mass - Extremities Exam Extremities exam: much reduced edema and erythema to ventral aspect of Lt forearm. Surgical incision with aarti, no drainage. - Skin Skin exam: no rash Results - Labs CBC & BMP: 10/06/16 04:47 10/06/16 04:47 Lab Results: I have reviewed the past 24 hour labs (blood cultures neg) Specialty Discharge - Follow Up or Referrals Follow up with: Deb Flower MD [Physician] - 10/14/16 9:00 am Griffin Fitzgerald MD [Physician] - 10/16/16 2:30 pm (10-14days)
--- NOTE | 2016-10-06 13:48 | Post Interventional Procedure ---
Pre-op diagnosis: Infected hardware (now removed) right elbow ORIF Post-op diagnosis: same Procedure: PICC CARTER Radiologist: Reji Perkins Anesthesia: local Specimens: none sent Estimated blood loss: none Complications: none Condition: stable Assessment and Plan - Time spent with patient Time spent with patient: Less than 30 minutes
[2016-10-06 14:01] VITALS: BP 116/61
--- NOTE | 2016-10-06 15:17 | Interventional Radiology Rpt ---
IR PICC line insertion, US guide vascular access Indication: Infected left elbow status post removal of hardware from prior ORIF. Long-term IV antibiotics necessary. PICC LINE Description: A formal timeout was performed. Maximum sterile barrier technique was used. Sonographic evaluation of the right upper extremity demonstrates patent and compressible basilar vein. The upper arm was prepped and draped in sterile fashion. 3 cc 1% lidocaine was administered subcutaneously. Under sonographic guidance, a micropuncture needle was advanced into the vein. A captured sonographic image documents the position of the needle. Needle was exchanged over a wire for a peel-away sheath. A dual lumen power PICC, cut to 39 cm, was advanced over the wire until the tip was at the RA-SVC junction. The position of the catheter was confirmed with fluoroscopic guidance and an image stored in PACS. The wire and sheath were removed. Both ports of the PICC were aspirated and flushed with heparinized saline. The device was secured with a StatLock. Fluoroscopy: 0.1 minute. Impression: PICC line ready for immediate use. Routine catheter care. PROCEDURE INTERPRETED AT [facility] DEPARTMENT OF RADIOLOGY Final Report Signed by: Reji Perkins M.D.
[2016-10-07] MEDS ORDERED: FOSAMAX 10 MG PO SCH (07:30)
== END 2016-10-06 15:37 | disposition home or self-care (01) | DRG 501 ==
LOC: N.2E 10:44
PROVIDERS: ADMIT Family Medicine; ATTEND Family Medicine

== ENCOUNTER 2021-07-15 06:59 | Inpatient (IN) ==
[2021-07-09 12:02] LABS: Basophils # 0.1 10*3/uL (0.0-0.2); Basophils % 1.2 % (0.0-0.8); Eosinophils # 0.3 10*3/uL (0.0-0.87); Eosinophils % 2.6 % (0.00-10.9); Hematocrit 29.3 VOL% (35.7-47.0); Hemoglobin 9.5 GM/DL (12.0-16.0); Immature Granulocytes % 0.5 %; Immature Granulocytes Absolute 0.05 #; Lymphocytes # 1.2 10*3/uL (1.4-4.0); Mean Corpuscular HGB Conc 32.4 GM/DL (32-36); Mean Corpuscular Volume 95.4 FL (87-102); Mean Platelet Volume 9.8 FL (9.6-12.0); Monocytes % 7.5 % (1.7-12.7); Neutrophils % 76.2 % (38.7-73.9); Platelet Count 382 T/CUMM (130-400); Red Blood Count 3.07 MC/CUMM (3.8-5.5); Red Cell Distribution Width 15.5 % (9.3-17.3)
[2021-07-09 12:29] LABS: Alanine Aminotransferase 12 U/L (13-56); Albumin 3.1 G/DL (3.4-5.0); Alkaline Phosphatase 113 U/L (45-117); Aspartate Amino Transferase 16 U/L (0-37); Bilirubin,Total < 0.39 MG/DL (0.20-1.00); Blood Urea Nitrogen 25 MG/DL (7-18); Calcium 9.1 MG/DL (8.5-10.1); Carbon Dioxide 28 MMOL/L (21-32); Estimated Glom Filtration Rate 45 ML/MIN; Glucose 77 MG/DL (74-106); Osmolality,Calculated 277.7 MOS/KG (273-304); Potassium 5.3 MMOL/L (3.5-5.1); Sodium 138 MMOL/L (136-145); Total Protein 6.6 G/DL (6.4-8.2)
[~2021-07-15 06:59] MED LIST: HEPARIN/NACL 0.9% 2 UNITS/ML 1,000 UNIT/500 ML BAG IV ONE; NITROGLYCERIN DRIP 50 MG/250 ML BOTTLE IV ONE; PHENYLEPHRINE 10 MG/1 ML VIAL IV ONE
[2021-07-15] MEDS ORDERED: FAMOTIDINE 20 MG TABLET PO ONE (07:20)
[2021-07-15] MEDS ORDERED: DIAZEPAM 5 MG TABLET PO ONE (07:20)
[2021-07-15] MEDS ORDERED: LACTATED RINGERS 1,000 ML IV SCH (07:30)
[2021-07-15] MEDS ORDERED: ceFAZolin 1,000 MG VIAL ONE (08:03)
[2021-07-15] MEDS ORDERED: LIDOCAINE 2% 5 ML VIAL ONE (08:16)
[2021-07-15] MEDS ORDERED: SEVOFLURANE 1 UNIT/15 MINUTE INH ONE (08:16)
[2021-07-15] MEDS ORDERED: propofoL 200 MG/20 ML VIAL IV ONE (08:16)
[2021-07-15] MEDS ORDERED: KETAMINE 500 MG/10 ML VIAL ONE (08:16)
[2021-07-15] MEDS ORDERED: fentaNYL 100 MCG/2 ML VIAL ONE (08:16)
[2021-07-15] MEDS ORDERED: ROCURONIUM 50 MG/5 ML VIAL IV ONE (08:16)
[2021-07-15] MEDS ORDERED: LIDOCAINE 1% 50 ML VIAL ONE (08:23)
[2021-07-15] MEDS ORDERED: HEPARIN 5,000 UNIT/1 ML VIAL ONE (08:23)
[2021-07-15] MEDS ORDERED: DEXAMETHASONE 4 MG/1 ML VIAL ONE (10:00)
[2021-07-15] MEDS ORDERED: ONDANSETRON 4 MG/2 ML VIAL ONE (10:00)
[2021-07-15] MEDS ORDERED: GLYCOPYRROLATE 0.4 MG/2 ML VIAL ONE (10:01)
[2021-07-15] MEDS ORDERED: NEOSTIGMINE 10 MG/10 ML VIAL ONE (10:01)
[2021-07-15] MEDS ORDERED: PROTAMINE SULFATE 50 MG/5 ML VIAL IV ONE (10:19)
[2021-07-15] MEDS ORDERED: HEPARIN 10,000 UNIT/10 ML VIAL ONE (10:19)
[2021-07-15] MEDS ORDERED: NALOXONE 0.4 MG/ML VIAL IV PRN (10:38)
[2021-07-15] MEDS ORDERED: HYDROmorphone 1 MG/1 ML SYRINGE IV PRN ×3 (10:38→11:16)
[2021-07-15] MEDS ORDERED: ONDANSETRON 4 MG/2 ML VIAL IV PRN ×2 (10:38→11:16)
[2021-07-15] MEDS ORDERED: oxyCODONE/ACETAMINOPHEN 5-325 MG TABLET PO PRN ×2 (10:38)
[2021-07-15] MEDS ORDERED: GLUCAGON 1 MG VIAL IM PRN (10:38)
[2021-07-15] MEDS ORDERED: PROMETHAZINE 25 MG/1 ML VIAL IM PRN (10:38)
[2021-07-15] MEDS ORDERED: ACETAMINOPHEN 325 MG TABLET PO PRN (10:43)
[2021-07-15] MEDS ORDERED: NITROPRUSSIDE 100 MG in DEXTROSE 5% 250 ML IV SCH (11:00)
[2021-07-15] MEDS ORDERED: DEXTROSE 10% 250 ML BAG IV PRN (11:03)
[2021-07-15] MEDS ORDERED: METOPROLOL TARTRATE 5 MG/5 ML VIAL IV ONE (12:04)
[2021-07-15] MEDS: LACTATED RINGERS 1,000 ML IV SCH ×2 (12:04→22:14)
[2021-07-15] MEDS: PHENYLEPHRINE DRIP 40 MG/250 ML PREMIX IV SCH ×2 (12:05→13:29)
[2021-07-15] MEDS ORDERED: DOCUSATE SODIUM 100 MG CAPSULE PO PRN (12:08)
[2021-07-15] MEDS ORDERED: PHENYLEPHRINE DRIP 40 MG/250 ML PREMIX IV PRN (12:09)
[2021-07-15] MEDS ORDERED: CARBIDOPA/LEVODOPA 25-100 MG TABLET PO SCH (21:00)
[2021-07-15] MEDS: METOPROLOL TARTRATE 50 MG TABLET PO SCH (21:49)
[2021-07-15] MEDS ORDERED: MELATONIN 3 MG TABLET PO PRN (22:09)
[2021-07-16] MEDS: METOPROLOL TARTRATE 50 MG TABLET PO SCH (08:50)
[2021-07-16] MEDS ORDERED: ASPIRIN EC 81 MG TABLET PO SCH ×2 (09:00)
[2021-07-16] MEDS ORDERED: MAGNESIUM OXIDE 400 MG TABLET PO SCH (09:00)
[2021-07-16] MEDS ORDERED: ESTRADIOL 2 MG TABLET PO SCH (09:00)
[2021-07-16] MEDS ORDERED: CLOPIDOGREL 75 MG TABLET PO SCH (09:00)
[2021-07-16] MEDS: LACTATED RINGERS 1,000 ML IV SCH (09:29)
[2021-07-16 11:37] VITALS: BP 104/60
== END 2021-07-16 13:47 | disposition home or self-care (01) | DRG 38 ==
LOC: N.OR 06:59 → N.SDSINP 07:01 → EDSTATUS 10:30 → N.ICU 10:38
PROVIDERS: ADMIT Surgery; ATTEND Surgery

== ENCOUNTER 2021-07-20 12:49 | Inpatient (IN) ==
[2021-07-20] MEDS ORDERED: SODIUM CHLORIDE 0.9% 1,000 ML IV STA (13:16)
[2021-07-20 14:26] LABS: Basophils % 0.3 % (0.0-0.8); Eosinophils % 0.2 % (0.00-10.9); Hematocrit 26.1 VOL% (35.7-47.0); Hemoglobin 8.4 GM/DL (12.0-16.0); Immature Granulocytes % 0.3 %; Immature Granulocytes Absolute 0.02 #; Lymphocytes # 0.5 10*3/uL (1.4-4.0); Lymphocytes % 7.5 % (21.3-54.2); Mean Corpuscular HGB Conc 32.2 GM/DL (32-36); Mean Corpuscular Volume 97.8 FL (87-102); Mean Platelet Volume 9.9 FL (9.6-12.0); Monocytes % 16.2 % (1.7-12.7); Neutrophils % 75.5 % (38.7-73.9); Platelet Count 451 T/CUMM (130-400); Red Blood Count 2.67 MC/CUMM (3.8-5.5); Red Cell Distribution Width 15.6 % (9.3-17.3); White Blood Count 6.3 T/CUMM (4-12)
[2021-07-20] MEDS ORDERED: HYDROmorphone 1 MG/1 ML SYRINGE IV STA (14:31)
[2021-07-20] MEDS ORDERED: ONDANSETRON 4 MG/2 ML VIAL IV STA (14:31)
[2021-07-20 14:51] LABS: Anisocytosis 1+; Band Neutrophils 45 % (0-10); Eosinophils 1 % (0-10); Hypochromia 3+; Lymphocytes 18 % (20-55); Segmented Neutrophils 22 % (50-85); Total Cells Counted 100
[2021-07-20 14:52] LABS: Microcytosis 2+; Polychromasia 1+
[2021-07-20 14:53] LABS: Platelet Estimate Increased
[2021-07-20 14:58] LABS: Alanine Aminotransferase 15 U/L (13-56); Albumin 2.5 G/DL (3.4-5.0); Alkaline Phosphatase 98 U/L (45-117); Aspartate Amino Transferase 14 U/L (0-37); Blood Urea Nitrogen 30 MG/DL (7-18); Carbon Dioxide 45 MMOL/L (21-32); Estimated Glom Filtration Rate 18 ML/MIN; Glucose 129 MG/DL (74-106); Osmolality,Calculated 290.1 MOS/KG (273-304); Potassium 2.9 MMOL/L (3.5-5.1); Sodium 142 MMOL/L (136-145); Total Protein 6.2 G/DL (6.4-8.2)
[2021-07-20] MEDS ORDERED: PIPERACILLIN/TAZOBACTAM 3,375 MG in SODIUM CHLORIDE 0.9% 100 ML IV STA ×2 (15:09→15:11)
[2021-07-20] MEDS ORDERED: SODIUM CHLORIDE 0.9% 500 ML IV STA ×2 (15:09→15:33)
[2021-07-20] MEDS ORDERED: ACETAMINOPHEN 325 MG TABLET PO PRN (18:13)
[2021-07-20] MEDS ORDERED: ONDANSETRON 4 MG/2 ML VIAL IV PRN (18:13)
[2021-07-20] MEDS: LACTATED RINGERS 1,000 ML IV SCH (18:43)
[2021-07-20] MEDS: POTASSIUM CHLORIDE RIDER 10 MEQ/100 ML PREMIX IV SCH ×3 (18:43→22:53)
[2021-07-20] MEDS: MORPHINE 2 MG/1 ML SYRINGE IV PRN (19:02)
[2021-07-20] MEDS: HYDROmorphone 1 MG/1 ML SYRINGE IV PRN (20:00)
[2021-07-21] MEDS: HYDROmorphone 1 MG/1 ML SYRINGE IV PRN ×3 (00:40→14:26)
[2021-07-21] MEDS ORDERED: POTASSIUM CHLORIDE RIDER 10 MEQ/100 ML PREMIX IV SCH (01:00)
[2021-07-21] MEDS: POTASSIUM CHLORIDE RIDER 10 MEQ/100 ML PREMIX IV SCH (01:21)
[2021-07-21] MEDS: LACTATED RINGERS 1,000 ML IV SCH (03:16)
[2021-07-21] MEDS: PIPERACILLIN/TAZOBACTAM 3,375 MG in SODIUM CHLORIDE 0.9% 100 ML IV SCH ×2 (03:18→14:31)
[2021-07-21 06:45] LABS: Basophils # 0.1 10*3/uL (0.0-0.2); Basophils % 0.6 % (0.0-0.8); Eosinophils % 0.1 % (0.00-10.9); Hematocrit 28.1 VOL% (35.7-47.0); Hemoglobin 8.5 GM/DL (12.0-16.0); Lymphocytes # 0.6 10*3/uL (1.4-4.0); Lymphocytes % 5.8 % (21.3-54.2); Mean Corpuscular HGB Conc 30.2 GM/DL (32-36); Mean Corpuscular Volume 99.3 FL (87-102); Mean Platelet Volume 10.1 FL (9.6-12.0); Monocytes % 13.7 % (1.7-12.7); Neutrophils % 78.8 % (38.7-73.9); Platelet Count 351 T/CUMM (130-400); Red Blood Count 2.83 MC/CUMM (3.8-5.5); Red Cell Distribution Width 15.8 % (9.3-17.3); White Blood Count 9.9 T/CUMM (4-12)
[2021-07-21 06:50] LABS: Band Neutrophils 3 % (0-10); Hypochromia 1+; Lymphocytes 18 % (20-55); Microcytosis 1+; Platelet Estimate Adequate; Segmented Neutrophils 73 % (50-85); Total Cells Counted 100
[2021-07-21 07:36] LABS: Albumin 2.2 G/DL (3.4-5.0); Bilirubin,Total 0.4 MG/DL (0.20-1.00); Calcium 7.8 MG/DL (8.5-10.1); Osmolality,Calculated 294.8 MOS/KG (273-304); Potassium 4.4 MMOL/L (3.5-5.1); Total Protein 5.3 G/DL (6.4-8.2)
[2021-07-21] MEDS: PANTOPRAZOLE 40 MG TABLET PO SCH (08:26)
[2021-07-21] MEDS ORDERED: LACTATED RINGERS 2,000 ML IV ONE (08:45)
[2021-07-21] MEDS: DEXTROSE 5% LACTATED RINGERS 1,000 ML IV SCH ×2 (09:26→15:53)
[2021-07-21 15:16] LABS: Calcium 7.7 MG/DL (8.5-10.1); Osmolality,Calculated 298.7 MOS/KG (273-304); Potassium 3.1 MMOL/L (3.5-5.1)
[2021-07-21] MEDS: POTASSIUM CHLORIDE RIDER 10 MEQ/100 ML PREMIX IV PRN ×4 (15:54→20:27)
[2021-07-21] MEDS ORDERED: LACTATED RINGERS 1,000 ML IV ONE (16:42)
[2021-07-21 17:14] LABS: Bacteria,Urine Occasional /HPF (Few); RBC,Urine 1 /HPF (0-4); Squamous Epithelial Cell,Urine Many /HPF (0-10)
[2021-07-21 17:17] LABS: Urine Appearance Clear (Clear); Urine Color Yellow (Yellow)
[2021-07-21 17:18] LABS: Bilirubin,Urine Negative (Negative); Blood, Urine Trace mg/dL (Negative); Glucose,Urine (UA) Negative (Negative); Ketones,Urine Negative (Negative); Nitrite,Urine Negative (Negative); Protein,Urine 30 mg/dL (Negative); Urine Specific Gravity 1.015 (1.001-1.035); Urine Urobilinogen 0.2 eU/dL (<2.0)
[2021-07-21] MEDS: MORPHINE 2 MG/1 ML SYRINGE IV PRN (17:35)
[2021-07-21] MEDS ORDERED: CALCIUM GLUCONATE RIDER 1,000 MG/50 ML PREMIX IV ONE (23:00)
[2021-07-22] MEDS: DEXTROSE 5% LACTATED RINGERS 1,000 ML IV SCH ×3 (02:44→20:39)
[2021-07-22] MEDS: PIPERACILLIN/TAZOBACTAM 3,375 MG in SODIUM CHLORIDE 0.9% 100 ML IV SCH ×2 (02:46→18:19)
[2021-07-22 07:36] LABS: Calcium 7.6 MG/DL (8.5-10.1); Osmolality,Calculated 290.3 MOS/KG (273-304); Potassium 3.4 MMOL/L (3.5-5.1)
[2021-07-22] MEDS: MORPHINE 2 MG/1 ML SYRINGE IV PRN ×4 (07:50→23:49)
[2021-07-22 07:58] LABS: Basophils % 0.2 % (0.0-0.8); Eosinophils # 0.2 10*3/uL (0.0-0.87); Eosinophils % 1.9 % (0.00-10.9); Hematocrit 20.6 VOL% (35.7-47.0); Immature Granulocytes % 0.7 %; Immature Granulocytes Absolute 0.09 #; Lymphocytes # 0.7 10*3/uL (1.4-4.0); Lymphocytes % 5.4 % (21.3-54.2); Mean Corpuscular HGB Conc 30.1 GM/DL (32-36); Mean Platelet Volume 9.7 FL (9.6-12.0); Monocytes % 9.2 % (1.7-12.7); Neutrophils % 82.6 % (38.7-73.9); Platelet Count 354 T/CUMM (130-400); Red Blood Count 2.04 MC/CUMM (3.8-5.5); White Blood Count 12.7 T/CUMM (4-12)
[2021-07-22 08:03] LABS: Hemoglobin 6.2 GM/DL (12.0-16.0)
[2021-07-22 08:19] LABS: Eosinophils 3 % (0-10); Hypochromia 1+; Lymphocytes 5 % (20-55); Microcytosis 1+; Platelet Estimate Adequate; Segmented Neutrophils 88 % (50-85); Total Cells Counted 100
[2021-07-22] MEDS ORDERED: SODIUM CHLORIDE 0.9% 1,000 ML IV PRN ×2 (08:37→14:38)
[2021-07-22] MEDS: PANTOPRAZOLE 40 MG TABLET PO SCH (10:13)
[2021-07-22] MEDS ORDERED: BENZOCAINE/MENTHOL LOZENGE 18/BOX PO PRN (15:53)
[2021-07-22] MEDS: POTASSIUM CHLORIDE RIDER 10 MEQ/100 ML PREMIX IV PRN (16:43)
[2021-07-22 21:10] LABS: Hematocrit 28.1 VOL% (35.7-47.0); Hemoglobin 8.8 GM/DL (12.0-16.0)
[2021-07-23] MEDS: DEXTROSE 5% LACTATED RINGERS 1,000 ML IV SCH ×4 (03:46→22:52)
[2021-07-23] MEDS: PIPERACILLIN/TAZOBACTAM 3,375 MG in SODIUM CHLORIDE 0.9% 100 ML IV SCH ×2 (05:41→18:16)
[2021-07-23 08:08] LABS: Basophils # 0.1 10*3/uL (0.0-0.2); Basophils % 0.4 % (0.0-0.8); Eosinophils # 0.3 10*3/uL (0.0-0.87); Eosinophils % 1.9 % (0.00-10.9); Hematocrit 30.2 VOL% (35.7-47.0); Hemoglobin 9.3 GM/DL (12.0-16.0); Immature Granulocytes % 0.8 %; Immature Granulocytes Absolute 0.12 #; Lymphocytes # 0.9 10*3/uL (1.4-4.0); Lymphocytes % 5.9 % (21.3-54.2); Mean Corpuscular HGB Conc 30.8 GM/DL (32-36); Mean Corpuscular Volume 92.4 FL (87-102); Mean Platelet Volume 9.9 FL (9.6-12.0); Monocytes % 6.9 % (1.7-12.7); Neutrophils % 84.1 % (38.7-73.9); Platelet Count 402 T/CUMM (130-400); Red Blood Count 3.27 MC/CUMM (3.8-5.5); Red Cell Distribution Width 20.2 % (9.3-17.3); White Blood Count 14.9 T/CUMM (4-12)
[2021-07-23 08:14] LABS: Calcium 8.3 MG/DL (8.5-10.1)
[2021-07-23] MEDS: HYDROmorphone 1 MG/1 ML SYRINGE IV PRN (08:23)
[2021-07-23 08:26] LABS: Osmolality,Calculated 285.3 MOS/KG (273-304)
[2021-07-23 08:30] LABS: Eosinophils 4 % (0-10); Hypochromia 1+; Lymphocytes 11 % (20-55); Microcytosis 1+; Platelet Estimate Adequate; Segmented Neutrophils 79 % (50-85); Total Cells Counted 100
[2021-07-23 08:55] LABS: Potassium 2.5 MMOL/L (3.5-5.1)
[2021-07-23] MEDS: POTASSIUM CHLORIDE RIDER 10 MEQ/100 ML PREMIX IV PRN ×8 (10:23→23:35)
[2021-07-23] MEDS ORDERED: PHENOL 1.4% THROAT SPRAY 177 ML BOTTLE PO PRN (10:45)
[2021-07-23] MEDS ORDERED: POTASSIUM CHLORIDE 20 MEQ TABLET PO ONE (11:00)
[2021-07-23] MEDS ORDERED: POTASSIUM BICARB EFFERVESCENT 20 MEQ TAB.EFF PO ONE (13:30)
[2021-07-23] MEDS: MORPHINE 2 MG/1 ML SYRINGE IV PRN ×3 (14:02→22:47)
[2021-07-23] MEDS: PANTOPRAZOLE 40 MG TABLET PO SCH (14:19)
[2021-07-23] MEDS: CARBIDOPA/LEVODOPA 25-100 MG TABLET PO SCH (20:58)
[2021-07-23] MEDS: TEMAZEPAM 15 MG CAPSULE PO SCH (20:58)
[2021-07-24] MEDS: POTASSIUM CHLORIDE RIDER 10 MEQ/100 ML PREMIX IV PRN ×2 (00:53→02:36)
[2021-07-24 05:42] LABS: Basophils # 0.1 10*3/uL (0.0-0.2); Basophils % 0.4 % (0.0-0.8); Eosinophils # 0.5 10*3/uL (0.0-0.87); Eosinophils % 4.6 % (0.00-10.9); Hematocrit 29.3 VOL% (35.7-47.0); Hemoglobin 8.9 GM/DL (12.0-16.0); Immature Granulocytes % 1.5 %; Immature Granulocytes Absolute 0.17 #; Lymphocytes # 0.9 10*3/uL (1.4-4.0); Lymphocytes % 7.5 % (21.3-54.2); Mean Corpuscular HGB Conc 30.4 GM/DL (32-36); Mean Platelet Volume 9.5 FL (9.6-12.0); Monocytes % 7.7 % (1.7-12.7); Neutrophils % 78.3 % (38.7-73.9); Platelet Count 391 T/CUMM (130-400); Red Blood Count 3.15 MC/CUMM (3.8-5.5); Red Cell Distribution Width 19.5 % (9.3-17.3); White Blood Count 11.6 T/CUMM (4-12)
[2021-07-24 06:00] LABS: Calcium 8.1 MG/DL (8.5-10.1)
[2021-07-24 06:03] LABS: Osmolality,Calculated 286.1 MOS/KG (273-304); Potassium 3.7 MMOL/L (3.5-5.1)
[2021-07-24] MEDS: DEXTROSE 5% LACTATED RINGERS 1,000 ML IV SCH ×3 (06:10→17:28)
[2021-07-24] MEDS: PIPERACILLIN/TAZOBACTAM 3,375 MG in SODIUM CHLORIDE 0.9% 100 ML IV SCH ×2 (06:11→17:29)
[2021-07-24] MEDS ORDERED: ROCURONIUM 50 MG/5 ML VIAL IV ONE (08:25)
[2021-07-24] MEDS ORDERED: DEXAMETHASONE 4 MG/1 ML VIAL ONE ×2 (08:25→08:37)
[2021-07-24] MEDS ORDERED: SODIUM CHLORIDE 0.9% 1,000 ML IV ONE (08:25)
[2021-07-24] MEDS ORDERED: MIDAZOLAM 2 MG/2 ML VIAL ONE (08:25)
[2021-07-24] MEDS ORDERED: ONDANSETRON 4 MG/2 ML VIAL ONE (08:25)
[2021-07-24] MEDS ORDERED: propofoL 200 MG/20 ML VIAL IV ONE (08:25)
[2021-07-24] MEDS ORDERED: SUCCINYLCHOLINE 200 MG/10 ML VIAL ONE (08:25)
[2021-07-24] MEDS ORDERED: LIDOCAINE 2% 5 ML VIAL ONE (08:25)
[2021-07-24] MEDS ORDERED: fentaNYL 100 MCG/2 ML VIAL ONE (08:25)
[2021-07-24] MEDS ORDERED: LIDOCAINE 1% 5 ML VIAL ONE (08:37)
[2021-07-24] MEDS ORDERED: ROPIVACAINE 0.5% 30 ML VIAL ONE (08:37)
[2021-07-24] MEDS ORDERED: PHENYLEPHRINE DRIP 20 MG/250 ML PREMIX IV ONE (08:47)
[2021-07-24] MEDS ORDERED: HEPARIN/NACL 0.9% 2 UNITS/ML 1,000 UNIT/500 ML BAG IV ONE (08:47)
[2021-07-24 09:57] LABS: ABG Base Excess 11.9 MMOL/L (-2.5-2.5); ABG HCO3 35.7 MMOL/L (20-26); ABG PCO2 41.2 MM HG (35-48); ABG PH 7.544 (7.35-7.45); ABG TCO2 33.3 MMOL/L (23-27); Glucose Heart Surgery 254 MG/DL (74-106); Hematocrit Heart Surgery 23.4 PERCENT (37-47); Hemoglobin Heart Surgery 7.5 G/DL (12.0-16.0); Ionized Calcium Arterial 1.07 MMOL/L (1.21-1.46); PCO2 Patient Temp Arterial 41.2 MMHG; PH Patient Temp Arterial 7.544; Patient Temperature 37 CELCIUS; Potassium Heart/CVR 3.1 MMOL/L (3.5-5.1); Sodium Heart/CVR 142 MMOL/L (135-145)
[2021-07-24] MEDS ORDERED: SUGAMMADEX 200 MG/2 ML VIAL IV ONE (10:11)
[2021-07-24] MEDS: PANTOPRAZOLE 40 MG TABLET PO SCH (10:16)
[2021-07-24] MEDS: ESTRADIOL 2 MG TABLET PO SCH (10:16)
[2021-07-24] MEDS ORDERED: SEVOFLURANE 1 UNIT/15 MINUTE INH ONE (10:34)
[2021-07-24] MEDS ORDERED: ONDANSETRON 4 MG/2 ML VIAL IV PRN (10:41)
[2021-07-24] MEDS: HYDROmorphone 1 MG/1 ML SYRINGE IV PRN ×4 (11:00→21:34)
[2021-07-24 11:14] LABS: Bacteria,Urine Occasional /HPF (Few); RBC,Urine 1 /HPF (0-4); Squamous Epithelial Cell,Urine Occasional /HPF (0-10)
[2021-07-24 11:18] LABS: Bilirubin,Urine Negative (Negative); Blood, Urine Negative (Negative); Glucose,Urine (UA) Negative (Negative); Ketones,Urine Trace mg/dL (Negative); Nitrite,Urine Negative (Negative); Protein,Urine 100 mg/dL (Negative); Urine Appearance Clear (Clear); Urine Color Yellow (Yellow); Urine Specific Gravity 1.015 (1.001-1.035); Urine pH 8.5 (4.5-8.0)
[2021-07-24 11:19] LABS: Urine Urobilinogen 0.2 eU/dL (<2.0)
[2021-07-24] MEDS ORDERED: GLUCAGON 1 MG VIAL IM PRN (11:19)
[2021-07-24] MEDS ORDERED: DEXTROSE 10% 250 ML BAG IV PRN (11:58)
[2021-07-24] MEDS ORDERED: LIDOCAINE 1%/EPI INJ 20 ML VIAL ONE (12:58)
[2021-07-24] MEDS ORDERED: BUPIVACAINE MPF 0.25% 30 ML VIAL ONE (12:58)
[2021-07-24] MEDS: FAT EMULSION 20% 250 ML IV SCH (15:20)
[2021-07-24] MEDS: INSULIN REGULAR 100 UNIT/ML SUBCUT SCH ×2 (15:20→17:29)
[2021-07-24] MEDS ORDERED: DEXTROSE 10% 1,000 ML IV PRN (17:00)
[2021-07-24] MEDS ORDERED: ZINC/COPPER/MANGANESE/SELENIUM 1 ML, MULTIVITAMIN INJ 10 ML in AMINO ACIDS/DEXT/LYTES 5... IV SCH (17:00)
[2021-07-24] MEDS: TEMAZEPAM 15 MG CAPSULE PO SCH (21:34)
[2021-07-24] MEDS: CARBIDOPA/LEVODOPA 25-100 MG TABLET PO SCH (21:34)
[2021-07-25] MEDS: DEXTROSE 5% LACTATED RINGERS 1,000 ML IV SCH ×3 (00:31→13:03)
[2021-07-25] MEDS: INSULIN REGULAR 100 UNIT/ML SUBCUT SCH ×4 (01:25→18:26)
[2021-07-25] MEDS: MORPHINE 2 MG/1 ML SYRINGE IV PRN (01:26)
[2021-07-25] MEDS: HYDROmorphone 1 MG/1 ML SYRINGE IV PRN ×6 (05:10→22:15)
[2021-07-25] MEDS: PIPERACILLIN/TAZOBACTAM 3,375 MG in SODIUM CHLORIDE 0.9% 100 ML IV SCH ×2 (06:24→17:59)
[2021-07-25 08:01] LABS: Alanine Aminotransferase < 6 U/L (13-56); Albumin 1.6 G/DL (3.4-5.0); Alkaline Phosphatase 68 U/L (45-117); Aspartate Amino Transferase 18 U/L (0-37); Bilirubin,Total < 0.39 MG/DL (0.20-1.00); Blood Urea Nitrogen 22 MG/DL (7-18); Calcium 8.2 MG/DL (8.5-10.1); Carbon Dioxide 37 MMOL/L (21-32); Estimated Glom Filtration Rate 26 ML/MIN; Glucose 95 MG/DL (74-106); Osmolality,Calculated 294.4 MOS/KG (273-304); Potassium 2.9 MMOL/L (3.5-5.1); Sodium 147 MMOL/L (136-145); Total Protein 4.9 G/DL (6.4-8.2)
[2021-07-25] MEDS: PANTOPRAZOLE 40 MG TABLET PO SCH (08:59)
[2021-07-25] MEDS: ESTRADIOL 2 MG TABLET PO SCH (08:59)
[2021-07-25] MEDS: POTASSIUM CHLORIDE RIDER 10 MEQ/100 ML PREMIX IV PRN ×3 (09:00→12:52)
[2021-07-25] MEDS: FAT EMULSION 20% 250 ML IV SCH (15:04)
[2021-07-25] MEDS: LACTATED RINGERS 1,000 ML IV SCH (15:12)
[2021-07-25] MEDS ORDERED: ZINC/COPPER/MANGANESE/SELENIUM 1 ML, MULTIVITAMIN INJ 10 ML in AMINO ACIDS/DEXT/LYTES 5... IV SCH (17:00)
[2021-07-25] MEDS: ZINC/COPPER/MANGANESE/SELENIUM 1 ML, MULTIVITAMIN INJ 10 ML, POTASSIUM CHLORIDE INJ 40 ... IV SCH (17:59)
[2021-07-25] MEDS: CARBIDOPA/LEVODOPA 25-100 MG TABLET PO SCH (21:40)
[2021-07-25] MEDS: TEMAZEPAM 15 MG CAPSULE PO SCH (21:40)
[2021-07-26] MEDS: HYDROmorphone 1 MG/1 ML SYRINGE IV PRN ×4 (01:15→11:38)
[2021-07-26] MEDS: INSULIN REGULAR 100 UNIT/ML SUBCUT SCH ×4 (01:16→17:39)
[2021-07-26] MEDS: LACTATED RINGERS 1,000 ML IV SCH ×3 (01:16→14:50)
[2021-07-26] MEDS: PIPERACILLIN/TAZOBACTAM 3,375 MG in SODIUM CHLORIDE 0.9% 100 ML IV SCH (05:41)
[2021-07-26] MEDS: ESTRADIOL 2 MG TABLET PO SCH (08:33)
[2021-07-26] MEDS: PANTOPRAZOLE 40 MG TABLET PO SCH (08:33)
[2021-07-26] MEDS ORDERED: ZALEPLON 5 MG CAPSULE PO PRN (10:51)
[2021-07-26] MEDS: FAT EMULSION 20% 250 ML IV SCH (13:48)
[2021-07-26] MEDS: ZINC/COPPER/MANGANESE/SELENIUM 1 ML, MULTIVITAMIN INJ 10 ML, POTASSIUM CHLORIDE INJ 40 ... IV SCH (17:58)
[2021-07-26] MEDS: METOPROLOL TARTRATE 50 MG TABLET PO SCH (20:58)
[2021-07-26] MEDS: CARBIDOPA/LEVODOPA 25-100 MG TABLET PO SCH (20:58)
[2021-07-26] MEDS: TEMAZEPAM 15 MG CAPSULE PO SCH (20:58)
[2021-07-27] MEDS: LACTATED RINGERS 1,000 ML IV SCH ×3 (00:06→14:42)
[2021-07-27] MEDS: INSULIN REGULAR 100 UNIT/ML SUBCUT SCH ×4 (01:17→17:49)
[2021-07-27] MEDS: ESTRADIOL 2 MG TABLET PO SCH (08:39)
[2021-07-27] MEDS: PANTOPRAZOLE 40 MG TABLET PO SCH (08:39)
[2021-07-27] MEDS: ASPIRIN EC 81 MG TABLET PO SCH (08:39)
[2021-07-27] MEDS: METOPROLOL TARTRATE 50 MG TABLET PO SCH ×2 (08:39→21:11)
[2021-07-27] MEDS: FAT EMULSION 20% 250 ML IV SCH (14:41)
[2021-07-27] MEDS: ZINC/COPPER/MANGANESE/SELENIUM 1 ML, MULTIVITAMIN INJ 10 ML, POTASSIUM CHLORIDE INJ 40 ... IV SCH (17:03)
[2021-07-27] MEDS: TEMAZEPAM 15 MG CAPSULE PO SCH (21:11)
[2021-07-27] MEDS: CARBIDOPA/LEVODOPA 25-100 MG TABLET PO SCH (21:11)
[2021-07-28] MEDS: LACTATED RINGERS 1,000 ML IV SCH ×2 (02:12→16:16)
[2021-07-28] MEDS: INSULIN REGULAR 100 UNIT/ML SUBCUT SCH ×4 (05:57→18:13)
[2021-07-28] MEDS: METOPROLOL TARTRATE 50 MG TABLET PO SCH ×2 (08:00→21:34)
[2021-07-28] MEDS: PANTOPRAZOLE 40 MG TABLET PO SCH (08:00)
[2021-07-28] MEDS: ASPIRIN EC 81 MG TABLET PO SCH (08:01)
[2021-07-28] MEDS: ESTRADIOL 2 MG TABLET PO SCH (08:01)
[2021-07-28] MEDS: CARBIDOPA/LEVODOPA 25-100 MG TABLET PO SCH (21:34)
[2021-07-28] MEDS: TEMAZEPAM 15 MG CAPSULE PO SCH (21:34)
[2021-07-29] MEDS: INSULIN REGULAR 100 UNIT/ML SUBCUT SCH ×4 (00:22→18:29)
[2021-07-29] MEDS: LACTATED RINGERS 1,000 ML IV SCH ×2 (03:23→21:03)
[2021-07-29] MEDS: METOPROLOL TARTRATE 50 MG TABLET PO SCH ×2 (08:37→20:56)
[2021-07-29] MEDS: ESTRADIOL 2 MG TABLET PO SCH (08:37)
[2021-07-29] MEDS ORDERED: MAGNESIUM SULF RIDER 2 GM/50 ML PREMIX IV PRN (08:37)
[2021-07-29] MEDS: PANTOPRAZOLE 40 MG TABLET PO SCH (08:37)
[2021-07-29] MEDS ORDERED: MAGNESIUM SULF RIDER 4 GM/100 ML PREMIX IV PRN (08:37)
[2021-07-29] MEDS: ASPIRIN EC 81 MG TABLET PO SCH (08:38)
[2021-07-29] MEDS: TEMAZEPAM 15 MG CAPSULE PO SCH (20:55)
[2021-07-29] MEDS: CARBIDOPA/LEVODOPA 25-100 MG TABLET PO SCH (20:56)
[2021-07-30] MEDS: INSULIN REGULAR 100 UNIT/ML SUBCUT SCH ×5 (00:57→22:15)
[2021-07-30] MEDS: LACTATED RINGERS 1,000 ML IV SCH ×2 (00:58→14:53)
[2021-07-30] MEDS: ASPIRIN EC 81 MG TABLET PO SCH (09:04)
[2021-07-30] MEDS: ESTRADIOL 2 MG TABLET PO SCH (09:04)
[2021-07-30] MEDS: PANTOPRAZOLE 40 MG TABLET PO SCH (09:05)
[2021-07-30] MEDS: METOPROLOL TARTRATE 50 MG TABLET PO SCH ×2 (09:05→21:41)
[2021-07-30] MEDS ORDERED: TUBERCULIN SKIN TEST 0.1 ML SYRINGE INTRADERM ONE (10:00)
[2021-07-30] MEDS: ENOXAPARIN 30 MG/0.3 ML SYRINGE SUBCUT SCH (10:44)
[2021-07-30] MEDS ORDERED: FUROSEMIDE 40 MG/4 ML VIAL IV ONE (19:47)
[2021-07-30] MEDS: CARBIDOPA/LEVODOPA 25-100 MG TABLET PO SCH (21:41)
[2021-07-30] MEDS: TEMAZEPAM 15 MG CAPSULE PO SCH (21:41)
[2021-07-30] MEDS: LACTATED RINGERS IV SCH (21:43)
[2021-07-30] MEDS: POTASSIUM CHLORIDE IV SCH (21:43)
[2021-07-30] MEDS: MAGNESIUM SULF IV SCH (21:43)
[2021-07-31 05:09] LABS: Basophils # 0.1 10*3/uL (0.0-0.2); Basophils % 0.5 % (0.0-0.8); Eosinophils # 0.5 10*3/uL (0.0-0.87); Eosinophils % 4.7 % (0.00-10.9); Hematocrit 23.3 VOL% (35.7-47.0); Immature Granulocytes % 1.4 %; Immature Granulocytes Absolute 0.14 #; Lymphocytes # 1.2 10*3/uL (1.4-4.0); Lymphocytes % 11.6 % (21.3-54.2); Mean Corpuscular Volume 94.3 FL (87-102); Mean Platelet Volume 9.9 FL (9.6-12.0); Monocytes % 6.8 % (1.7-12.7); Platelet Count 454 T/CUMM (130-400); Red Blood Count 2.47 MC/CUMM (3.8-5.5); Red Cell Distribution Width 18.2 % (9.3-17.3)
[2021-07-31] MEDS: LACTATED RINGERS IV SCH (05:28)
[2021-07-31] MEDS: MAGNESIUM SULF IV SCH (05:28)
[2021-07-31] MEDS: POTASSIUM CHLORIDE IV SCH (05:28)
[2021-07-31 05:38] LABS: Alanine Aminotransferase < 6 U/L (13-56); Albumin 1.6 G/DL (3.4-5.0); Alkaline Phosphatase 110 U/L (45-117); Aspartate Amino Transferase 16 U/L (0-37); Bilirubin,Total < 0.39 MG/DL (0.20-1.00); Blood Urea Nitrogen 20 MG/DL (7-18); Calcium 8.3 MG/DL (8.5-10.1); Carbon Dioxide 30 MMOL/L (21-32); Estimated Glom Filtration Rate 36 ML/MIN; Glucose 80 MG/DL (74-106); Osmolality,Calculated 287.8 MOS/KG (273-304); Potassium 3.4 MMOL/L (3.5-5.1); Sodium 144 MMOL/L (136-145); Total Protein 4.8 G/DL (6.4-8.2)
[2021-07-31] MEDS: INSULIN REGULAR 100 UNIT/ML SUBCUT SCH ×2 (06:42→11:46)
[2021-07-31] MEDS ORDERED: SODIUM CHLORIDE 0.9% 1,000 ML IV PRN ×3 (07:50→09:54)
[2021-07-31] MEDS: ASPIRIN EC 81 MG TABLET PO SCH (09:22)
[2021-07-31] MEDS: ESTRADIOL 2 MG TABLET PO SCH (09:23)
[2021-07-31] MEDS: PANTOPRAZOLE 40 MG TABLET PO SCH (09:24)
[2021-07-31] MEDS: ENOXAPARIN 30 MG/0.3 ML SYRINGE SUBCUT SCH (09:26)
[2021-07-31] MEDS: METOPROLOL TARTRATE 50 MG TABLET PO SCH (11:25)
[2021-07-31 13:05] VITALS: BP 122/69
[2021-07-31] MEDS ORDERED: FUROSEMIDE 20 MG/2 ML VIAL IV ONE (13:14)
== END 2021-07-31 13:34 | DRG 336 ==
LOC: N.ED 12:49 → N.EDINP 18:13 → N.3E 07-21 00:13 → N.CC 07-24 10:26 → N.3E 07-24 10:38
PROVIDERS: ADMIT Surgery; ATTEND Surgery